=== PATIENT | female | born 2000 | race African-American/Black ===

== ENCOUNTER 2022-08-08 08:16 | Emergency (ER) | payer OTHER ==
[~2022-08-08] VITALS: Ht 175.3 cm; Wt 136.1 kg
[2022-08-08] MEDS ORDERED: KETOROLAC TROMETHAMINE 30 MG/ML VIAL IV STA (08:46)
[2022-08-08] MEDS ORDERED: KETOROLAC TROMETHAMINE 30 MG/ML VIAL ONE (08:55)
[2022-08-08] MEDS ORDERED: IOPAMIDOL 370 MG/ML 100 ML INFUS..BTL INJ ONE (09:12)
== END 2022-08-08 10:13 | disposition home or self-care (01) ==
LOC: FSED 08:32
DX: R10.84 Generalized abdominal pain (principal); E11.9 Type 2 diabetes mellitus without complications
CPT/HCPCS: 74177; 81003; 81025; 99283; J1885; Q9967